=== PATIENT | female | born 1960 | race Caucasian/White ===

== ENCOUNTER 2018-02-16 20:16 | Emergency (ER) | payer BC ==
[2018-02-16] MEDS ORDERED: IPRATROPIUM/ALBUTEROL 0.5-2.5 MG/3 ML AMPUL NEB ONE ×3 (20:35→22:37)
[2018-02-16] MEDS ORDERED: PREDNISONE 20 MG TABLET PO ONE (20:35)
--- NOTE | 2018-02-16 20:39 | ER Document Report ---
ED Medical Screen (RME) - General Chief Complaint: Abnormal Lab Results Stated Complaint: SHORT OF BREATH Time Seen by Provider: 02/16/18 20:28 Notes: RAPID MEDICAL EVALUATION DISCLOSURE I have seen this patient as part of a Rapid Medical Evaluation and, if applicable, placed any initially appropriate orders. The patient will be seen and fully evaluated, including a full history and physical exam, by a provider ( in Main ED or Fast Track) when a room becomes available. 57-year-old female here today because of progressively worsening shortness of breath wheezing chest tightness. She was called by her PCP due to abnormal outpatient blood work. She was called on Saturday but decided not to come in until today. She recalls from the phone conversation that her CO2, potassium, and some other lab values were abnormal but cannot specifically remember which ones. At home, she normally wears 2 L oxygen via nasal cannula but does not know her baseline oxygen saturation values. She does continue to smoke cigarettes. EXAM Minimal to mild end expiratory wheezes Minimal decreased aeration TRAVEL OUTSIDE OF THE [place] IN LAST 30 DAYS: No Past Medical History - Social History Chew tobacco use (# tins/day): No Frequency of alcohol use: Rare Drug Abuse: None Pulmonary Medical History: Reports: Hx COPD Renal/ Medical History: Denies: Hx Peritoneal Dialysis Physical Exam - Vital signs Vitals: Temp Pulse Resp BP Pulse Ox 98.5 F 94 24 H 137/78 H 90 L 02/16/18 20:24 02/16/18 20:24 02/16/18 20:24 02/16/18 20:24 02/16/18 20:24 Course - Vital Signs Vital signs: Temp Pulse Resp BP Pulse Ox 98.5 F 94 24 H 137/78 H 90 L 02/16/18 20:24 02/16/18 20:24 02/16/18 20:24 02/16/18 20:24 02/16/18 20:24
[2018-02-16 21:20] LABS: ABSOLUTE BASOPHILS # (AUTO) 0.1 10^3/uL (0.0-0.2); ABSOLUTE EOSINOPHILS # (AUTO) 0.3 10^3/uL (0.0-0.6); ABSOLUTE LYMPHOCYTES (AUTO) 1.3 10^3/uL (0.5-4.7); ABSOLUTE MONOCYTES (AUTO) 0.6 10^3/uL (0.1-1.4); ABSOLUTE NEUT (AUTO) 8.5 10^3/uL (1.7-8.2); BASOPHILS % (AUTO) 0.6 % (0-2); EOSINOPHILS % (AUTO) 2.4 % (0-6); HEMATOCRIT 41.2 % (36.0-47.0); HEMOGLOBIN 13.6 g/dL (12.0-15.5); LYMPHOCYTES % (AUTO) 12.4 % (13-45); MEAN CORPUSCULAR HEMOGLOBIN 28.5 pg (27.0-33.4); MEAN CORPUSCULAR HGB CONC 33.1 g/dL (32.0-36.0); MEAN CORPUSCULAR VOLUME 86 fl (80-97); PLATELET COUNT 255 10^3/uL (150-450); RED BLOOD COUNT 4.78 10^6/uL (3.72-5.28); RED CELL DISTRIBUTION WIDTH 13.8 % (11.5-14.0); SEGMENTED NEUTROPHILS % (AUTO) 78.6 % (42-78); TOTAL CELLS COUNTED % (AUTO) 100 %; WHITE BLOOD COUNT 10.8 10^3/uL (4.0-10.5)
[2018-02-16 21:32] LABS: BLOOD UREA NITROGEN 10 mg/dL (7-20); CALCIUM 9.5 mg/dL (8.4-10.2); CHLORIDE 94 mmol/L (98-107); GLUCOSE 103 mg/dL (75-110); POTASSIUM 3.6 mmol/L (3.6-5.0); SODIUM 141.3 mmol/L (137-145)
[2018-02-16 21:38] LABS: ANION GAP 7 (5-19)
[2018-02-16 21:49] LABS: CARBON DIOXIDE 40 mmol/L (22-30)
--- NOTE | 2018-02-16 21:51 | RADIOLOGY REPORT (SQ) ---
EXAM DESCRIPTION: CHEST 2 VIEWS COMPLETED DATE/TIME: 02/16/2018 9:29 pm REASON FOR STUDY: SOB wheezing COMPARISON: None. EXAM PARAMETERS: NUMBER OF VIEWS: two views TECHNIQUE: Digital Frontal and Lateral radiographic views of the chest acquired. RADIATION DOSE: NA LIMITATIONS: none FINDINGS: LUNGS AND PLEURA: No consolidation, pneumothorax or pleural effusion. MEDIASTINUM AND HILAR STRUCTURES: No masses or contour abnormalities. HEART AND VASCULAR STRUCTURES: Heart normal size. No evidence for failure. BONES: No acute findings. HARDWARE: None in the chest. IMPRESSION: No acute radiographic finding in the chest. TECHNICAL DOCUMENTATION: JOB ID: [id number] [employer]- All Rights Reserved Reading location - IP/workstation name: [email or web address]
[2018-02-16 22:04] LABS: ARTERIAL BLOOD BASE EXCESS 12.3 mmol/L; ARTERIAL BLOOD FIO2 2L; ARTERIAL BLOOD HCO3 40.2 mmol/L (20-26); ARTERIAL BLOOD O2 SATURATION 92.2 % (94-98); ARTERIAL BLOOD PCO2 66.6 mmHg (35-45); ARTERIAL BLOOD PO2 65.5 mmHg (80-100); ARTERIAL BLOOD TOTAL CO2 42.3 mmol/L (21-25)
--- NOTE | 2018-02-16 22:42 | ER Document Report ---
ED General - General Chief Complaint: Abnormal Lab Results Stated Complaint: SHORT OF BREATH Time Seen by Provider: 02/16/18 20:28 Mode of Arrival: Ambulatory Information source: Patient TRAVEL OUTSIDE OF THE [place] IN LAST 30 DAYS: No - HPI Patient complains to provider of: sob Onset: Other - last few days Associated symptoms: Nonproductive cough Similar symptoms previously: Yes Recently seen / treated by doctor: Yes Notes: She states that she has a history of COPD and she continues to smoke a few cigarettes a day. She states that her AC was not working last few days and she thinks that contributes to her shortness of breath. States she has inhalers but she does not have a nebulizer at home. No productive cough, fevers, vomiting. Patient states she was also called from the doctor's office a few days ago for abnormal labs but she cannot recall exactly what. Patient states she does wear 2 L of oxygen at home continuously except when she smoking. She states she does not know her baseline pulse ox. Past Medical History - General Information source: Patient - Social History Smoking Status: Current Every Day Smoker Chew tobacco use (# tins/day): No Frequency of alcohol use: Rare Drug Abuse: None Lives with: Alone Family History: Reviewed & Not Pertinent Patient has suicidal ideation: No Patient has homicidal ideation: No - Past Medical History Cardiac Medical History: Reports: None Pulmonary Medical History: Reports: Hx COPD EENT Medical History: Reports: None Neurological Medical History: Reports: None Endocrine Medical History: Reports: None Renal/ Medical History: Reports: None. Denies: Hx Peritoneal Dialysis Malignancy Medical History: Reports: None GI Medical History: Reports: None Musculoskeltal Medical History: Reports None Psychiatric Medical History: Reports: None Past Surgical History: Reports: None, Other - breast bx Review of Systems - Review of Systems Constitutional: No symptoms reported EENT: No symptoms reported Cardiovascular: No symptoms reported Respiratory: See HPI Gastrointestinal: No symptoms reported Genitourinary: No symptoms reported Female Genitourinary: No symptoms reported Musculoskeletal: No symptoms reported Skin: No symptoms reported Hematologic/Lymphatic: No symptoms reported Neurological/Psychological: No symptoms reported Physical Exam - Vital signs Vitals: Temp Pulse Resp BP Pulse Ox 98.5 F 94 24 H 137/78 H 90 L 02/16/18 20:24 02/16/18 20:24 02/16/18 20:24 02/16/18 20:24 02/16/18 20:24 - Notes Notes: PHYSICAL EXAMINATION: GENERAL: Well-appearing, well-nourished and in no acute distress. Ambulatory from the wheelchair to the bed when she came back from getting her x-ray done HEAD: Atraumatic, normocephalic. EYES: Pupils equal round and reactive to light, extraocular movements intact, conjunctiva are normal. ENT: Nares patent, oropharynx clear without exudates. Moist mucous membranes. NECK: Normal range of motion, supple without lymphadenopathy LUNGS: Lateral inspiratory and expiratory wheezes HEART: Regular rate and rhythm without murmurs ABDOMEN: Soft, nontender, nondistended abdomen. No guarding, no rebound. No masses appreciated. Female : deferred Musculoskeletal: Normal range of motion, no pitting or edema. No cyanosis. NEUROLOGICAL: Cranial nerves grossly intact. Normal speech, normal gait. Normal sensory, motor exams PSYCH: Normal mood, normal affect. SKIN: Warm, Dry, normal turgor, no rashes or lesions noted. Course - Re-evaluation Re-evalutation: 02/16/18 22:46 Labs- All tests 24 hr 02/16/18 02/16/18 02/16/18 20:44 20:44 20:44 WBC 10.8 H RBC 4.78 Hgb 13.6 Hct 41.2 MCV 86 MCH 28.5 MCHC 33.1 RDW 13.8 Plt Count 255 Seg Neutrophils % 78.6 H Lymphocytes % 12.4 L Monocytes % 6.0 Eosinophils % 2.4 Basophils % 0.6 Absolute Neutrophils 8.5 H Absolute Lymphocytes 1.3 Absolute Monocytes 0.6 Absolute Eosinophils 0.3 Absolute Basophils 0.1 Carbonic Acid HCO3/H2CO3 Ratio ABG pH ABG pCO2 ABG pO2 ABG HCO3 ABG Total CO2 ABG O2 Saturation ABG Base Excess FiO2 Sodium 141.3 Potassium 3.6 Chloride 94 L Carbon Dioxide 40 H* Anion Gap 7 BUN 10 Creatinine 0.52 Est GFR ( Amer) > 60 Est GFR (Non-Af Amer) > 60 Glucose 103 Calcium 9.5 Phosphorus 3.0 Magnesium 1.8 Troponin I < 0.012 02/16/18 21:50 WBC RBC Hgb Hct MCV MCH MCHC RDW Plt Count Seg Neutrophils % Lymphocytes % Monocytes % Eosinophils % Basophils % Absolute Neutrophils Absolute Lymphocytes Absolute Monocytes Absolute Eosinophils Absolute Basophils Carbonic Acid 2.00 H HCO3/H2CO3 Ratio 20:1 ABG pH 7.40 ABG pCO2 66.6 H ABG pO2 65.5 L ABG HCO3 40.2 H ABG Total CO2 42.3 H ABG O2 Saturation 92.2 L ABG Base Excess 12.3 FiO2 2L Sodium Potassium Chloride Carbon Dioxide Anion Gap BUN Creatinine Est GFR ( Amer) Est GFR (Non-Af Amer) Glucose Calcium Phosphorus Magnesium Troponin I 02/16/18 22:50 Patient has improved markedly. Her pulse ox is 95% room air. Lungs have scant expiratory wheezing only. Patient feels much better. Discharged home with the zone and albuterol prescription. - Vital Signs Vital signs: Temp Pulse Resp BP Pulse Ox 98.5 F 94 24 H 137/78 H 90 L 02/16/18 20:24 02/16/18 20:24 02/16/18 20:24 02/16/18 20:24 02/16/18 20:24 02/16/18 22:50 Patient is 95% on room air. - Laboratory Result Diagrams: 02/16/18 20:44 02/16/18 20:44 Laboratory results interpreted by me: 02/16/18 02/16/18 02/16/18 20:44 20:44 21:50 WBC 10.8 H Seg Neutrophils % 78.6 H Lymphocytes % 12.4 L Absolute Neutrophils 8.5 H Carbonic Acid 2.00 H ABG pCO2 66.6 H ABG pO2 65.5 L ABG HCO3 40.2 H ABG Total CO2 42.3 H ABG O2 Saturation 92.2 L Chloride 94 L Carbon Dioxide 40 H* Discharge - Discharge Clinical Impression: COPD with exacerbation, Tobacco abuse counseling Condition: Stable Disposition: HOME, SELF-CARE Instructions: Chronic Obstructive Lung Disease ([facility]), Stop Smoking (COUNT INCLUDES THE [facility]) Prescriptions: Albuterol Sulfate [Proair HFA Inhalation Aerosol 8.5 gm MDI] 2 puff IH Q4H PRN # 1 mdi PRN Reason: Prednisone [Deltasone 20 mg Tablet] 3 tab PO DAILY 5 Days #15 tablet Referrals: MIRIAM BAIRD, [Primary Care Provider] - Follow up in 3-5 days
[2018-02-16 23:07] VITALS: BP 137/84
== END 2018-02-16 23:24 | disposition home or self-care (01) ==
LOC: ER 20:16
DX: J44.1 Chronic obstructive pulmonary disease with (acute) exacerbation (principal); F17.210 Nicotine dependence, cigarettes, uncomplicated; Z99.81 Dependence on supplemental oxygen
CPT/HCPCS: 94640 ×2; 99285; 36415; 82803; 83735; 84100; 85025; 80048; 84484; 71046; J7512; J7620